=== PATIENT | male | born 1975 | race Caucasian/White ===

== ENCOUNTER 2018-07-08 16:58 | Emergency (ER) | payer OTHER ==
[~2018-07-08] VITALS: Ht 180.3 cm; Wt 104.3 kg
[2018-07-08] MEDS ORDERED: REMERON15 MG PO (17:43)
[2018-07-08] MEDS ORDERED: VISTARIL 25 MG25 M1 PO (17:53)
[2018-07-08 18:48] VITALS: BP 166/99
== END 2018-07-08 18:49 | disposition home or self-care (01) ==
LOC: ER 16:58
DX: G47.00 Insomnia, unspecified (principal); J32.9 Chronic sinusitis, unspecified; T38.0X5A Adverse effect of glucocorticoids and synthetic analogues, initial encounter; R55 Syncope and collapse; Y92.89 Other specified places as the place of occurrence of the external cause